=== PATIENT | female | born 1970 | race Caucasian/White ===

== ENCOUNTER → 2018-07-05 | Outpatient (CLI) | payer OTHER | END | disposition home or self-care (01) | LOC: CFH 12:34 | PROVIDERS: ATTEND Internal Medicine | DX: N63.10 Unspecified lump in the right breast, unspecified quadrant (principal); N64.4 Mastodynia | CPT/HCPCS: 76641; 77066; G0279 ==

== ENCOUNTER 2020-08-06 20:05 | Emergency (ER) | payer OTHER ==
[~2020-08-06] VITALS: Ht 162.6 cm; Wt 61.6 kg
[2020-08-06 20:11] VITALS: BP 129/93
--- NOTE | 2020-08-06 21:00 | NUR ---
REPORT TO ROXANNE STONE
[2020-08-06] MEDS ORDERED: ACETAMINOPHEN 500 MG TABLET PO ONE (21:30)
[2020-08-06] MEDS ORDERED: IBUPROFEN 600 MG TABLET PO ONE (21:30)
[2020-08-06] MEDS ORDERED: IBUPROFEN 600 MG TABLET ONE (21:30)
[2020-08-06] MEDS ORDERED: ACETAMINOPHEN 500 MG TABLET ONE (21:31)
--- NOTE | 2020-08-06 21:34 | NUR ---
PT BACK FROM IMAGING
--- NOTE | 2020-08-06 21:37 | NUR ---
PT MEDICATED PER APR 26 RIGHTS VERIFIED
[2020-08-06] MEDS ORDERED: NEOSPORIN OINT. PKT 1 PACKET ONE (21:40)
--- NOTE | 2020-08-06 22:29 | NUR ---
Patient/Caregiver given discharge instructions and they have confirmed that they understand the instructions. Patient ambulatory with steady gait. NAD, all questions answered appropriately, denies additional needs at this time. No personal belongings left in room after discharge.
== END 2020-08-06 22:33 | disposition home or self-care (01) ==
LOC: ED 20:35
DX: S01.81XA Laceration without foreign body of other part of head, initial encounter (principal); S10.93XA Contusion of unspecified part of neck, initial encounter; S80.12XA Contusion of left lower leg, initial encounter; S80.11XA Contusion of right lower leg, initial encounter; S50.12XA Contusion of left forearm, initial encounter; S30.1XXA Contusion of abdominal wall, initial encounter; V49.49XA Driver injured in collision with other motor vehicles in traffic accident, initial encounter; Y93.89 Activity, other specified; Y92.410 Unspecified street and highway as the place of occurrence of the external cause; Y99.8 Other external cause status
CPT/HCPCS: 71046; 99283

== ENCOUNTER → 2020-08-22 | Outpatient (CLI) | payer OTHER | END | disposition home or self-care (01) | LOC: CFH 15:38 | PROVIDERS: ATTEND Internal Medicine | DX: Z12.31 Encounter for screening mammogram for malignant neoplasm of breast (principal); Z12.39 Encounter for other screening for malignant neoplasm of breast | CPT/HCPCS: 76641; 77063; 77067 ==